=== PATIENT | female | born 1985 | race Caucasian/White ===

== ENCOUNTER 2017-09-22 17:01 | Emergency (ER) | payer OTHER ==
[2017-09-22 17:08] VITALS: BP 121/70; PULSE 98; RESP 22; TEMP 98.9; O2SAT 100
--- NOTE | 2017-09-22 17:42 | ED PDOC ---
HPI: General Adult Time Seen by Provider: 09/22/17 17:22 Chief Complaint (Nursing): Palpitations Chief Complaint (Provider): Palpitations History Per: Patient History/Exam Limitations: no limitations Onset/Duration Of Symptoms: Hrs Additional Complaint(s): Patient is a 32 y/o female with no significant past medical history presenting to the emergency department for palpitations that began at 1 p.m. today after being given a detox tea by a friend. Reports that after consuming the tea she started feeling tingling in her hands and feet in addition to the palpitations. She went to be evaluated by Dr. Piña who noted that she had a slightly elevated heart rate. Denies any other complaints. PCP: none provided. Past Medical History Reviewed: Historical Data, Nursing Documentation, Vital Signs Vital Signs: Last Vital Signs Temp 98.9 F 09/22/17 17:06 Pulse 98 H 09/22/17 17:06 Resp 22 09/22/17 17:06 BP 121/70 09/22/17 17:06 Pulse Ox 100 09/22/17 20:41 - Medical History PMH: Anxiety Denies: Chronic Kidney Disease - Surgical History Surgical History: No Surg Hx - Family History Family History: States: Unknown Family Hx - Social History Current smoker - smoking cessation education provided: No Ex-Smoker (has not smoked in the last 12 months): No Alcohol: None Drugs: Denies - Home Medications Home Medications: Ambulatory Orders Medication Instructions Recorded Aspirin [Ecotrin] 81 mg PO DAILY #30 ect 08/23/15 clonazePAM [Klonopin] 1 mg PO BID #0 tab 08/23/15 - Allergies Allergies/Adverse Reactions: Allergies Allergy/AdvReac Type Severity Reaction Status Date / Time No Known Allergies Allergy Verified 08/22/15 15:20 Review of Systems ROS Statement: Except As Marked, All Systems Reviewed And Found Negative Cardiovascular: Positive for: Palpitations Neurological: Positive for: Other (tingling in lower and upper extremities) Physical Exam - Reviewed Nursing Documentation Reviewed: Yes Vital Signs Reviewed: Yes - Physical Exam Appears: Positive for: Well, Non-toxic, No Acute Distress Head Exam: Positive for: ATRAUMATIC, NORMAL INSPECTION, NORMOCEPHALIC Skin: Positive for: Normal Color, Warm, Dry Eye Exam: Positive for: Normal appearance Neck: Positive for: Normal Cardiovascular/Chest: Positive for: Regular Rate, Rhythm. Negative for: Murmur Respiratory: Positive for: Normal Breath Sounds. Negative for: Accessory Muscle Use, Respiratory Distress Gastrointestinal/Abdominal: Positive for: Normal Exam, Soft. Negative for: Tenderness Extremity: Positive for: Normal ROM. Negative for: Pedal Edema Neurologic/Psych: Positive for: Alert, Oriented (x3). Negative for: Motor/ Sensory Deficits - Laboratory Results Result Diagrams: 09/22/17 18:00 09/22/17 18:00 - ECG Interpretation Of ECG: ST @ 106, no ST-T changes. O2 Sat by Pulse Oximetry: 100 (RA) Pulse Ox Interpretation: Normal - Physician Consult Information Time Consulting Physican Contacted: 20:30 Physician Contacted: Hugo Piña Outcome Of Conversation: Case discussed, agrees with discharge home. Medical Decision Making Medical Decision Making: Time: 17:50 Initial impression: Palpitations Initial plan: EKG Labs: CMP, CBC, TSH Urine Drug Screening ED Urine Dipstick ED Urine Normal Saline 1 L IV Urinalysis Reevaluation Scribe Attestation: Documented by Radha Souza, acting as a scribe for Chelsey Richmond MD. Provider Scribe Attestation: All medical record entries made by the Scribe were at my direction and personally dictated by me. I have reviewed the chart and agree that the record accurately reflects my personal performance of the history, physical exam, medical decision making, and the department course for this patient. I have also personally directed, reviewed, and agree with the discharge instructions and disposition. Disposition - Clinical Impression Clinical Impression: Palpitations - Disposition Referrals: Hugo Piña MD [Family Provider] - Disposition: Routine/Home Disposition Time: 20:23 Condition: STABLE Additional Instructions: DISCONTINUE DETOX TEA. Instructions: Palpitations (ED) Forms: [employer] (Turkish) Print Language: GERMAN
[2017-09-22] MEDS ORDERED: Sodium Chloride 0.9% 1,000 ML IV STA (17:52)
[2017-09-22 18:06] LABS: BASO # 0.1 K/uL (0.0-0.2); BASO % 0.7 % (0.0-2.0); EOS % 0.1 % (0.0-4.0); HEMATOCRIT 41.5 % (34.0-47.0); LYMPH # 1.2 K/uL (1.0-4.3); LYMPH % 11.4 % (20.0-40.0); MEAN CELL VOLUME 79.7 fl (81.0-99.0); MEAN CORPUSCULAR HGB CONC 33.9 g/dL (33.0-37.0); MEAN PLATELET VOLUME 8.9 fl (7.2-11.7); MONO # 0.3 K/uL (0.0-0.8); MONO % 3.4 % (0.0-10.0); NEUT # 8.7 K/uL (1.8-7.0); NEUT % 84.4 % (50.0-75.0); NRBC % 0.3 % (0.0-0.0); RED CELL DISTRIBUTION WIDTH 14.8 % (11.5-14.5); WHITE BLOOD COUNT 10.3 K/uL (4.8-10.8)
[2017-09-22 18:17] LABS: ALB/GLOB RATIO 1.4 (1.0-2.1); ALKALINE PHOSPHATASE 78 U/L (38-126); ALT/SGPT 44 U/L (9-52); AST/SGOT 26 U/L (14-36); BLOOD UREA NITROGEN 16 mg/dl (7-17); CALCIUM 9.2 mg/dL (8.4-10.2); CARBON DIOXIDE 24 mmol/L (22-30); CHLORIDE 107 mmol/L (98-107); GFR AFRICAN-AMERICAN > 60; GLUCOSE,RANDOM 101 mg/dL (65-105); POTASSIUM 4.2 MMOL/L (3.6-5.0); SODIUM 140 mmol/l (132-148); TOTAL PROTEIN 7.9 G/DL (6.3-8.2)
[2017-09-22 18:24] LABS: URINE BACTERIA RARE (<OCC); URINE BILIRUBIN NEGATIVE (NEGATIVE); URINE BLOOD SMALL (NEGATIVE); URINE COLOR COLORLESS (YELLOW); URINE GLUCOSE (UA) NEG (Normal); URINE KETONE TRACE mg/dL (NEGATIVE); URINE LEUKOCYTE ESTERASE NEG Leu/uL (Negative); URINE PROTEIN NEGATIVE (NEGATIVE); URINE UROBILINOGEN 0.2-1.0 mg/dL (0.2-1.0)
[2017-09-22 18:46] LABS: THYROID STIMULATING HORMONE 0.53 mIU/ML (0.46-4.68)
== END 2017-09-22 20:33 | disposition home or self-care (01) ==
LOC: H.ER 17:01
DX: R00.2 Palpitations (principal); F41.9 Anxiety disorder, unspecified; Z79.82 Long term (current) use of aspirin; Z87.891 Personal history of nicotine dependence
CPT/HCPCS: 80053; 80324; 80345; 80346; 80349; 80353; 80358; 80361; 81003; 81025; 83992; 84443; 85025; 96360; 99284; J7040

== ENCOUNTER 2017-09-25 20:02 | Emergency (ER) | payer OTHER ==
[2017-09-25 20:25] VITALS: TEMP 98.2
[2017-09-25] MEDS ORDERED: Sodium Chloride 0.9% 1,000 ML IV STA ×2 (20:57→22:59)
--- NOTE | 2017-09-25 21:08 | ED PDOC ---
HPI: Chest Pain Time Seen by Provider: 09/25/17 20:58 Chief Complaint (Nursing): Palpitations Chief Complaint (Provider): PALPITATIONS History Per: Patient (32 Y/O FEMALE HERE WITH TACHYCARDIA ASSOCIATED WITH DIZZINESS TODAY AT [facility]. [facility] STATES PATIENT REQUESTED TO URGENTLY GET OUT OF [facility] AND GO TO HOSPITAL. HAS BEEN SEEN RECENTLY IN ED FOR SIMILAR SYMPTOMS AFTER STARTING DETOX CLEANSE. WAS SENT BY DR. BREWSTER TO ED FOR EVALUATION. HAS HAD SIMILAR REACTION 2 WEEKS PRIOR WITH RESOLUTION. NO ALCOHOL /DRUG USE.) Past Medical History Reviewed: Historical Data, Nursing Documentation, Vital Signs Vital Signs: Last Vital Signs Temp 98.2 F 09/25/17 20:24 Pulse 101 H 09/25/17 22:53 Resp 18 09/25/17 22:53 BP 119/72 09/25/17 22:53 Pulse Ox 99 09/25/17 23:02 - Medical History PMH: Anxiety Denies: Chronic Kidney Disease - Family History Family History: States: Unknown Family Hx - Home Medications Home Medications: Ambulatory Orders Medication Instructions Recorded Aspirin [Ecotrin] 81 mg PO DAILY #30 ect 08/23/15 clonazePAM [Klonopin] 1 mg PO BID #0 tab 08/23/15 ALPRAZolam [Xanax] 0.25 mg PO Q6 PRN #3 tab 09/25/17 Famotidine [Pepcid] 20 mg PO BID #10 tab 09/25/17 - Allergies Allergies/Adverse Reactions: Allergies Allergy/AdvReac Type Severity Reaction Status Date / Time No Known Allergies Allergy Verified 08/22/15 15:20 Review of Systems ROS Statement: Except As Marked, All Systems Reviewed And Found Negative Physical Exam - Reviewed Nursing Documentation Reviewed: Yes Vital Signs Reviewed: Yes - Physical Exam Appears: Positive for: Well, Non-toxic, No Acute Distress Head Exam: Positive for: ATRAUMATIC, NORMAL INSPECTION, NORMOCEPHALIC Skin: Positive for: Normal Color, Warm, DRY Eye Exam: Positive for: EOMI, Normal appearance, PERRL ENT: Positive for: Normal ENT Inspection Neck: Positive for: Normal, Painless ROM Cardiovascular/Chest: Positive for: Regular Rate, Rhythm Respiratory: Positive for: CNT, Normal Breath Sounds Gastrointestinal/Abdominal: Positive for: Normal Exam, Bowel Sounds, Soft Back: Positive for: Normal Inspection Extremity: Positive for: Normal ROM Neurologic/Psych: Positive for: Alert, Oriented - Laboratory Results Result Diagrams: 09/25/17 21:19 09/25/17 21:19 - ECG O2 Sat by Pulse Oximetry: 99 - Progress ED Course And Treament: ekg: sinus tachycardia 113 no ectopy no acute changes NS 1 liter wide open Ativan 0.5 mg i vx 1 dose/ pepcid 20 mg iv x 1 dose Repeat HR 89 Disposition - Clinical Impression Clinical Impression: Palpitations - Patient ED Disposition Is Patient to be Admitted: No - Disposition Disposition: Routine/Home Disposition Time: 23:51 Condition: FAIR Prescriptions: ALPRAZolam [Xanax] 0.25 mg PO Q6 PRN #3 tab PRN Reason: Anxiety Famotidine [Pepcid] 20 mg PO BID #10 tab Instructions: Palpitations (ED) Forms: [employer] (Indonesian), [facility] ED School/Work Excuse Print Language: SETSWANA
[2017-09-25 21:24] LABS: BASO # 0.1 K/uL (0.0-0.2); BASO % 0.9 % (0.0-2.0); EOS % 0.3 % (0.0-4.0); HEMATOCRIT 40.6 % (34.0-47.0); LYMPH # 2.3 K/uL (1.0-4.3); LYMPH % 22.5 % (20.0-40.0); MEAN CORPUSCULAR HEMOGLOBIN 27.1 pg (27.0-31.0); MEAN CORPUSCULAR HGB CONC 34.3 g/dL (33.0-37.0); MEAN PLATELET VOLUME 8.7 fl (7.2-11.7); MONO # 0.6 K/uL (0.0-0.8); NEUT # 7.3 K/uL (1.8-7.0); NEUT % 70.3 % (50.0-75.0); RED CELL DISTRIBUTION WIDTH 14.8 % (11.5-14.5); WHITE BLOOD COUNT 10.3 K/uL (4.8-10.8)
[2017-09-25 21:41] LABS: ALB/GLOB RATIO 1.4 (1.0-2.1); ALKALINE PHOSPHATASE 80 U/L (38-126); ALT/SGPT 36 U/L (9-52); AST/SGOT 24 U/L (14-36); BLOOD UREA NITROGEN 11 mg/dl (7-17); CALCIUM 9.4 mg/dL (8.4-10.2); CARBON DIOXIDE 25 mmol/L (22-30); CHLORIDE 106 mmol/L (98-107); GFR AFRICAN-AMERICAN > 60; GLUCOSE,RANDOM 117 mg/dL (65-105); MAGNESIUM 1.8 MG/DL (1.6-2.3); POTASSIUM 4.3 MMOL/L (3.6-5.0); SODIUM 141 mmol/l (132-148); TOTAL PROTEIN 7.8 G/DL (6.3-8.2)
[2017-09-25 22:05] LABS: THYROID STIMULATING HORMONE 2.11 mIU/ML (0.46-4.68)
[2017-09-25 22:54] VITALS: BP 119/72; PULSE 101; RESP 18
[2017-09-25 23:02] VITALS: O2SAT 99
--- NOTE | 2017-09-26 11:48 | RAD ---
HISTORY: Palpitations. COMPARISON: No prior. FINDINGS: LUNGS: No active pulmonary disease. PLEURA: No significant pleural effusion identified, no pneumothorax apparent. CARDIOVASCULAR: Normal. OSSEOUS STRUCTURES: No significant abnormalities. VISUALIZED UPPER ABDOMEN: Normal. OTHER FINDINGS: None. IMPRESSION: No active disease.
--- NOTE | 2017-09-28 10:22 | CARD ---
APPROVED REPORT EKG Measurement Heart [id number] <Conclusion> Sinus tachycardia Otherwise normal ECG
== END 2017-09-26 00:25 | disposition home or self-care (01) ==
LOC: H.ER 20:02
DX: R00.2 Palpitations (principal); F41.9 Anxiety disorder, unspecified; R00.0 Tachycardia, unspecified; Z79.82 Long term (current) use of aspirin
CPT/HCPCS: 71010; 80053; 80324; 80345; 80346; 80349; 80353; 80358; 80361; 81025; 83735; 83992; 84443; 85025; 85378; 96361; 96374; 96375; 99284; J2060; J7040

== ENCOUNTER 2017-09-28 18:00 | Emergency (ER) | payer OTHER ==
[2017-09-28 18:07] VITALS: O2SAT 99
[2017-09-28] MEDS ORDERED: Iohexol 240 (50 ml) PO ONE (18:23)
[2017-09-28] MEDS ORDERED: Sodium Chloride 0.9% 1,000 ML IV SCH (18:30)
--- NOTE | 2017-09-28 18:31 | ED PDOC ---
HPI: Abdomen Time Seen by Provider: 09/28/17 18:12 Chief Complaint (Nursing): Abdominal Pain History Per: Patient History/Exam Limitations: no limitations Onset/Duration Of Symptoms: Days (3) Outside of [place] travel?: No Current Symptoms Are (Timing): Still Present Context: Food Severity: Moderate Location Of Pain/Discomfort: RUQ, Epigastric Quality Of Discomfort: Unable To Describe, "Pain" Associated Symptoms: Nausea, Loss Of Appetite Exacerbating Factors: Food Alleviating Factors: None Last Bowel Movement: Today Additional Complaint(s): 32 year old female with PMH of anxiety presents to ED with complaint of epigastric abdominal pain for 3 days. She reports pain radiates to RUQ and is unable to describe pain, but worsens after eating. She also reports nausea. Additionally she reports she feels episodes of palpitations which is intermittent and was seen in ED on 09/25 for same symptoms. She reports her last alcoholic beverage was 2 weeks ago. She has been told in the past she had gastritis and pancreatitis in [facility]. PSH of liposuction in [place]. Denies fever, chest pain, SOB. Abnormal Vaginal Bleeding: No Last Menstral Period: 09/01/17 Past Medical History Reviewed: Historical Data, Nursing Documentation, Vital Signs Vital Signs: Last Vital Signs Temp 98.4 F 09/28/17 18:04 Pulse 97 H 09/28/17 18:04 Resp 17 09/28/17 18:04 BP 126/57 L 09/28/17 18:04 Pulse Ox 99 09/28/17 19:31 - Medical History PMH: Anxiety - Surgical History Other surgeries: liposuction - Family History Family History: States: Unknown Family Hx - Living Arrangements Living Arrangements: With Family - Social History Alcohol: Occasional Drugs: Denies - Home Medications Home Medications: Ambulatory Orders Medication Instructions Recorded Aspirin [Ecotrin] 81 mg PO DAILY #30 ect 08/23/15 clonazePAM [Klonopin] 1 mg PO BID #0 tab 08/23/15 ALPRAZolam [Xanax] 0.25 mg PO Q6 PRN #3 tab 09/25/17 Famotidine [Pepcid] 20 mg PO BID #10 tab 09/25/17 - Allergies Allergies/Adverse Reactions: Allergies Allergy/AdvReac Type Severity Reaction Status Date / Time No Known Allergies Allergy Verified 08/22/15 15:20 Review of Systems Constitutional: Negative for: Fever, Weakness, Malaise Eyes: Negative for: Vision Change Cardiovascular: Positive for: Palpitations. Negative for: Chest Pain Respiratory: Negative for: Cough, Shortness of Breath Gastrointestinal: Positive for: Nausea, Abdominal Pain Genitourinary Female: Negative for: Dysuria, Vaginal Bleeding Musculoskeletal: Negative for: Back Pain Skin: Negative for: Rash Neurological: Negative for: Weakness, Numbness, Headache, Dizziness Physical Exam - Reviewed Nursing Documentation Reviewed: Yes - Physical Exam Appears: Positive for: Well, Non-toxic, No Acute Distress Head Exam: Positive for: ATRAUMATIC, NORMAL INSPECTION, NORMOCEPHALIC Skin: Positive for: Normal Color, Warm, Dry. Negative for: Rash Eye Exam: Positive for: Normal appearance, EOMI Neck: Positive for: Normal, Painless ROM, Decreased ROM Cardiovascular/Chest: Negative for: Murmur Respiratory: Positive for: Normal Breath Sounds. Negative for: Rhonchi, Wheezing, Respiratory Distress Gastrointestinal/Abdominal: Positive for: Soft, Tenderness (mostly tender to epigastric and RUQ, negative Hall's sign). Negative for: Organomegaly, Distended, Guarding, Hernia Extremity: Positive for: Normal ROM. Negative for: Tenderness, Pedal Edema, Deformity Neurologic/Psych: Positive for: Alert, Oriented - Laboratory Results Result Diagrams: 09/28/17 18:51 09/28/17 18:51 Urine dip results: Negative for: Leukocyte Esterase, Blood, Nitrate - ECG O2 Sat by Pulse Oximetry: 99 Medical Decision Making Medical Decision Making: Impression: Epigastric and RUQ abdominal pain Plan: * Labs * CT A/P * IV NS, Toradol, Zofran Progress: Labs reviewed slight WBC 12.2 and borderline elevated LFT. Lipase WNL. Patient care signed out to FABY Chapa pending CT scan, re-eval and dispo Disposition - Clinical Impression Clinical Impression: Upper abdominal pain - Patient ED Disposition Is Patient to be Admitted: Transfer of Care - Disposition Disposition: Transfer of Care Disposition Time: 20:12 Condition: STABLE Patient Signed Over To: Agnieszka Chapa Handoff Comments: pending CT scan, re-eval and dispo - POA Present On Arrival: None
[2017-09-28 18:56] LABS: BASO # 0.1 K/uL (0.0-0.2); BASO % 0.6 % (0.0-2.0); EOS # 0.1 K/uL (0.0-0.7); EOS % 0.5 % (0.0-4.0); HEMATOCRIT 43.2 % (34.0-47.0); LYMPH # 2.2 K/uL (1.0-4.3); LYMPH % 18.3 % (20.0-40.0); MEAN CELL VOLUME 80.2 fl (81.0-99.0); MEAN CORPUSCULAR HEMOGLOBIN 26.8 pg (27.0-31.0); MEAN CORPUSCULAR HGB CONC 33.4 g/dL (33.0-37.0); MEAN PLATELET VOLUME 8.9 fl (7.2-11.7); MONO # 0.7 K/uL (0.0-0.8); MONO % 5.8 % (0.0-10.0); NEUT # 9.2 K/uL (1.8-7.0); NEUT % 74.8 % (50.0-75.0); NRBC % 0.3 % (0.0-0.0); RED CELL DISTRIBUTION WIDTH 14.3 % (11.5-14.5); WHITE BLOOD COUNT 12.2 K/uL (4.8-10.8)
[2017-09-28] MEDS ORDERED: Iohexol 240 (50 ml) ONE (19:19)
[2017-09-28 19:27] LABS: ALB/GLOB RATIO 1.4 (1.0-2.1); ALKALINE PHOSPHATASE 84 U/L (38-126); ALT/SGPT 53 U/L (9-52); AMYLASE 89 U/L (30-110); AST/SGOT 33 U/L (14-36); BILIRUBIN,TOTAL 1.5 mg/dl (0.2-1.3); BLOOD UREA NITROGEN 10 mg/dl (7-17); CALCIUM 9.5 mg/dL (8.4-10.2); CARBON DIOXIDE 24 mmol/L (22-30); CHLORIDE 104 mmol/L (98-107); GFR AFRICAN-AMERICAN > 60; GLUCOSE,RANDOM 100 mg/dL (65-105); LIPASE 116 U/L (23-300); POTASSIUM 4.4 MMOL/L (3.6-5.0); SODIUM 139 mmol/l (132-148); TOTAL PROTEIN 8.7 G/DL (6.3-8.2)
--- NOTE | 2017-09-28 21:14 | ED PDOC ---
HPI: Abdomen Time Seen by Provider: 09/28/17 18:12 Chief Complaint (Nursing): Abdominal Pain Chief Complaint (Provider): Abdominal Pain History Per: Patient History/Exam Limitations: no limitations Onset/Duration Of Symptoms: Days (3) Outside of [place] travel?: No Past Medical History Vital Signs: Last Vital Signs Temp 98.4 F 09/28/17 18:04 Pulse 97 H 09/28/17 18:04 Resp 17 09/28/17 18:04 BP 126/57 L 09/28/17 18:04 Pulse Ox 99 09/28/17 20:13 - Medical History PMH: Anxiety, Gastritis Denies: Chronic Kidney Disease - Surgical History Surgical History: No Surg Hx Other surgeries: liposuction - Family History Family History: States: Unknown Family Hx - Social History Alcohol: Occasional Drugs: Denies - Home Medications Home Medications: Ambulatory Orders Medication Instructions Recorded Aspirin [Ecotrin] 81 mg PO DAILY #30 ect 08/23/15 clonazePAM [Klonopin] 1 mg PO BID #0 tab 08/23/15 ALPRAZolam [Xanax] 0.25 mg PO Q6 PRN #3 tab 09/25/17 Famotidine [Pepcid] 20 mg PO BID #10 tab 09/25/17 - Allergies Allergies/Adverse Reactions: Allergies Allergy/AdvReac Type Severity Reaction Status Date / Time No Known Allergies Allergy Verified 08/22/15 15:20 - Laboratory Results Result Diagrams: 09/28/17 18:51 09/28/17 18:51 - ECG O2 Sat by Pulse Oximetry: 99 Medical Decision Making Medical Decision Making: Initial Impression: Vomiting; abdominal pain Initial Plan: Scribe Attestation: Documented by Leslie Pozo, acting as a scribe for Chelsey Richmond MD. Provider Scribe Attestation: All medical record entries made by the Scribe were at my direction and personally dictated by me. I have reviewed the chart and agree that the record accurately reflects my personal performance of the history, physical exam, medical decision making, and the department course for this patient. I have also personally directed, reviewed, and agree with the discharge instructions and disposition. Disposition - Clinical Impression Clinical Impression: Upper abdominal pain - Disposition Disposition: Transfer of Care Disposition Time: 20:12 Condition: STABLE - POA Present On Arrival: None
[2017-09-28] MEDS ORDERED: Iohexol 300 100 ML IJ ONE (21:22)
--- NOTE | 2017-09-28 22:20 | ED PDOC ---
- Laboratory Results Result Diagrams: 09/28/17 18:51 09/28/17 18:51 - ECG O2 Sat by Pulse Oximetry: 99 Medical Decision Making Medical Decision Making: US and CT normal Disposition - Clinical Impression Clinical Impression: Upper abdominal pain - POA Present On Arrival: None - Disposition Referrals: Landon Florez MD, PhD [Staff Provider] - Disposition: Routine/Home Disposition Time: 22:18 Condition: GOOD Instructions: Acute Abdominal Pain (ED) Forms: [employer] (Puerto Rican)
[2017-09-28 22:24] VITALS: PULSE 98; RESP 16; TEMP 98.7
[2017-09-28 22:25] VITALS: BP 100/57
--- NOTE | 2017-09-29 05:38 | CT ---
PROCEDURE: CT Abdomen and Pelvis with contrast HISTORY: Epigastric and right upper quadrant pain. By history, negative test (concurrent with this examination). COMPARISON: September 28, 2017. Abdominal ultrasound TECHNIQUE: Contrast dose: 90 mL Omnipaque 300 Radiation dose: Total exam DLP = 559.03 mGy-cm. This CT exam was performed using one or more of the following dose reduction techniques: Automated exposure control, adjustment of the mA and/or kV according to patient size, and/or use of iterative reconstruction technique. FINDINGS: LOWER THORAX: Unremarkable. LIVER: Unremarkable. No gross lesion or ductal dilatation. GALLBLADDER AND BILE DUCTS: Unremarkable. PANCREAS: Unremarkable. No gross lesion or ductal dilatation. SPLEEN: Unremarkable. ADRENALS: Contrast-enhancing characteristics of the wall of the left adnexal cysts consistent with recent rupture. Trace fluid in the cul-de-sac. KIDNEYS AND URETERS: Unremarkable. No hydronephrosis. No solid mass. VASCULATURE: No significant or acute findings to account for/ related to the clinical presentation. BOWEL: Unremarkable. No obstruction. No gross mural thickening. APPENDIX: Normal appendix. PERITONEUM: Unremarkable. No significant free fluid. Trace free fluid identified in the pelvis/cul de sac. No free air. LYMPH NODES: Unremarkable. No enlarged lymph nodes. BLADDER: Unremarkable. REPRODUCTIVE: Unremarkable. BONES: No acute fracture. OTHER FINDINGS: None. IMPRESSION: No significant or acute findings to account for/ related to the clinical presentation. Additional benign and/or incidental findings described above. Concordant results (preliminary interpretation) provided by [employer]. Procedure Completed: 21:33 Preliminary ([employer]) Report: Dictated and Authenticated: 21:36 Final Interpretation: 05:36 September 29, 2017.
--- NOTE | 2017-09-29 05:48 | US ---
HISTORY: RUQ, epigastric pain COMPARISON: September 28, 2017. CT abdomen and pelvis. TECHNIQUE: Sonographic evaluation of the right upper quadrant of the abdomen. FINDINGS: LIVER: Measures 10.9 cm in length. Patent portal vein. Portal venous flow: Hepatopetal. Unremarkeable echogenicity of the liver parenchyma. No mass. No intrahepatic bile duct dilatation. GALLBLADDER: Unremarkable. No gallstones. COMMON BILE DUCT: Measures 3.2 mm. No stones. No dilatation. PANCREAS: Unremarkable as visualized. No mass. No ductal dilatation. RIGHT KIDNEY: Measures 4.4 x 9.4 cm in length. Normal echogenicity. No calculus, mass, or hydronephrosis. AORTA: No aneurysmal dilatation. IVC: Unremarkable. OTHER FINDINGS: None . IMPRESSION: No significant or acute findings to account for/ related to the clinical presentation. Concordant results (preliminary interpretation) provided by [employer]. Procedure Completed: 20:57 Preliminary ([facility]) Report: Dictated and Authenticated: 21:35 Final Interpretation: 05:46 September 29, 2017.
== END 2017-09-28 23:34 | disposition home or self-care (01) ==
LOC: H.ER 18:00
DX: R10.13 Epigastric pain (principal); F41.9 Anxiety disorder, unspecified; Z79.82 Long term (current) use of aspirin
CPT/HCPCS: 74177; 76705; 80053; 81025; 82150; 83690; 85025; 99284; J7040; Q9966; Q9967